=== PATIENT | female | born 1985 | race Caucasian/White ===

== ENCOUNTER 2024-06-13 08:30 | Outpatient (CLI) | payer OTHER, SELFPAY ==
--- NOTE | ~2024-06-13 | NM_ITS ---
EXAMINATION: NM thyroid scan w uptake DATE: 06/14/2024 09:50 INDICATION: Thyrotoxicosis unspecified without thyrotoxic crisis. COMPARISON: None. TECHNIQUE: 0.468 mCi I-123 was administered orally. Scintigraphic images of the thyroid gland were o btained at 24 hours. Thyroid uptake was calculated by the technologist. FINDINGS: The thyroid uptake is 47% (normal 10-30%), with the right lobe measuring 26% uptake and the left 22%. There is no focal area of decreased or increased activity to suggest hypofunctioning or hyperfunctio anna nodule. IMPRESSION: 1. Increased 24-hour iodine uptake, consistent with Graves' disease. Reviewed, dictated and finalized at location A. [employer]
== END 2024-06-13 08:31 | disposition home or self-care (01) ==
LOC: ANHIMG 08:39
PROVIDERS: PCP Family Medicine; Visit Provider Emergency Medicine
DX: E05.90 Thyrotoxicosis, unspecified without thyrotoxic crisis or storm (principal)
CPT/HCPCS: 78014; A9516

== ENCOUNTER 2024-07-22 06:48 | Outpatient (CLI) | payer OTHER, SELFPAY ==
--- NOTE | ~2024-07-22 | NM_ITS ---
EXAMINATION: NM thyroid scan w uptake DATE: 07/23/2024 08:46 INDICATION: Abnormal level of hormone in specimen from other organs. COMPARISON: Thyroid scintigraphy 06/14/2024 TECHNIQUE: 0.520 mCi I-123 was administered orally. Scintigraphic images of the thyroid gland were o btained at 24 hours. Thyroid uptake was calculated by the technologist. FINDINGS: The thyroid uptake is 45% (normal 10-30%), with the right lobe measuring 25% uptake and the left 21%. There is no focal area of decreased or increased activity to suggest hypofunctioning or hyperfunctio anna nodule. IMPRESSION: 1. Increased 24-hour iodine uptake, consistent with Graves' disease. Reviewed, dictated and finalized at location A. [employer]
== END 2024-07-22 06:49 | disposition home or self-care (01) ==
LOC: ANHIMG 06:51
PROVIDERS: PCP Family Medicine; Visit Provider Emergency Medicine
DX: R89.1 Abnormal level of hormones in specimens from other organs, systems and tissues (principal)
CPT/HCPCS: 78014; A9516